=== PATIENT | male | born 1930 | race Caucasian/White ===

== ENCOUNTER → 2017-02-21 08:43 | Outpatient (CLI) | payer MEDICARE, BC ==
[2014-10-09 08:39] VITALS: BMI 30.9
[~2017-02-21 08:43] MED LIST: BAYER CHEWABLE81 MG PO; CENTRUM COMPLE1 EACH PO; FOLIC ACID1 MG PO; LOVASTATIN40 MG PO; METHOTREXATE2.5 MG PO; PRINZIDE 10/12.1 TA1 PO; PROTONIX40 MG PO; SYNTHROID75 MCG PO; VITAMIN D2000 UNIT PO; ZYLOPRIM300 MG PO
== END | disposition home or self-care (01) ==
LOC: D.US 08:43
DX: I71.4 Abdominal aortic aneurysm, without rupture (principal)

== ENCOUNTER → 2017-11-22 09:48 | Outpatient (CLI) | payer MEDICARE, BC ==
[2014-10-09 08:39] VITALS: BMI 30.9
== END | disposition home or self-care (01) ==
LOC: D.RAD 09:48
DX: R12 Heartburn (principal); R63.4 Abnormal weight loss